=== PATIENT | female | born 1950 | race Caucasian/White ===

== ENCOUNTER → 2017-03-05 | Outpatient (CLI) | payer MEDICARE, BC ==
--- NOTE | 2017-03-05 15:29 | US ---
EXAMINATION TYPE: US thyroid st tissue head/neck DATE OF EXAM: 03/05/2017 COMPARISON: NONE CLINICAL HISTORY: 66-year-old female E04.2 MULTINODULAR GOITER. Family h/o thyroid issues and goiter, patients first thyroid US TECHNIQUE: Multiple sonographic images of the thyroid gland are obtained. FINDINGS: GLAND SIZE: Right Lobe: 3.9 x 1.2 x 1.3 cm Overall Parenchyma: homogenous Left Lobe: 4.3 x 1.3 x 1.5 cm Overall Parenchyma: homogeneous Isthmus Thickness: 0.2 cm NODULES RIGHT: # of nodules measured on right: 0 LEFT: # of nodules measured on left: 0 ISTHMUS: # of nodules measured in the isthmus: 0 Bilateral neck scanned, no evidence of lymphadenopathy. IMPRESSION: Thyroid gland measurements as above. No discrete nodule.
== END | disposition home or self-care (01) ==
LOC: RADUSWWP 14:22
PROVIDERS: ATTEND Internal Medicine Endocrinology, Diabetes & Metabolism
DX: E04.2 Nontoxic multinodular goiter (principal)
CPT/HCPCS: 36415; 76536; 84439; 84443; 84480; 86376

== ENCOUNTER → 2017-06-05 | Outpatient (CLI) | payer MEDICARE, BC ==
--- NOTE | 2017-06-07 08:58 | MM ---
Reason for exam: screening (asymptomatic). Last mammogram was performed 1 year and 4 months ago. History: Patient is postmenopausal and had first child at age 32. Excisional biopsy of the left breast, 1982. Took hormonal contraceptives for 16 years. Physical Findings: A clinical breast exam by your physician is recommended on an annual basis and results should be correlated with mammographic findings. MG 3D Screening Mammo W/Cad Bilateral CC and MLO view(s) were taken. Prior study comparison: January 27, 2016, bilateral MG 3d screening mammo w/cad. June 11, 2014, bilateral MG screening mammo w CAD. March 24, 2013, bilateral digital screening mammo w/CAD. Left chest wall pacemaker generator. Subareolar nodule on the left has minimally increased in size to 7mm from 6mm in 2016. As it was not seen prior to that, short interval follow up recommended. ASSESSMENT: Probably benign, BI-RAD 3 RECOMMENDATION: Follow-up diagnostic mammogram of the left breast in 6 months.
== END | disposition home or self-care (01) ==
LOC: RADMAMWWP 13:25
PROVIDERS: ATTEND Obstetrics & Gynecology
DX: Z12.31 Encounter for screening mammogram for malignant neoplasm of breast (principal)
CPT/HCPCS: 77063; G0202

== ENCOUNTER → 2017-09-18 | Outpatient (CLI) | payer MEDICARE, BC ==
[2017-09-18 14:24] LABS: T4, Free (Free Thyroxine) 1.36 ng/dL (0.78-2.19)
== END | disposition home or self-care (01) ==
LOC: LABWHC1 13:14
PROVIDERS: ATTEND Internal Medicine Endocrinology, Diabetes & Metabolism
DX: E04.2 Nontoxic multinodular goiter (principal)
CPT/HCPCS: 36415; 84439; 84443; 84481

== ENCOUNTER → 2017-11-14 | Outpatient (CLI) | payer MEDICARE, BC ==
--- NOTE | 2017-11-14 12:12 | MM ---
Reason for exam: additional evaluation requested from prior study. Last mammogram was performed 5 months ago. History: Patient is postmenopausal and had first child at age 32. Excisional biopsy of the left breast, 1982. Took hormonal contraceptives for 16 years. Physical Findings: Nurse did not find any significant physical abnormalities on exam. MG 3D Diag Mammo W/Cad LT CC and MLO view(s) were taken of the left breast. Prior study comparison: June 05, 2017, bilateral MG 3d screening mammo w/cad. January 27, 2016, bilateral MG 3d screening mammo w/cad. The breast tissue is heterogeneously dense. This may lower the sensitivity of mammography. There is a similar appearing circumscribed mass in the subareolar left breast at anterior depth slightly inner and upper in comparison to 2017 increased since 2015. These results were verbally communicated with the patient and result sheet given to the patient on 11/14/17. ASSESSMENT: Incomplete: need additional imaging evaluation, BI-RAD 0 RECOMMENDATION: Ultrasound of the left breast. (periareolar ultrasound, focus upper inner quadrant)
--- NOTE | 2017-11-14 12:13 | USB ---
Reason for exam: additional evaluation requested from abnormal screening. History: Patient is postmenopausal and had first child at age 32. Excisional biopsy of the left breast, 1982. Took hormonal contraceptives for 16 years. US Breast Limited LT Left breast ultrasound demonstrates a 0.7 x 0.6 x 0.7cm oval, cystic lesion at the retroareolar. These results were verbally communicated with the patient and result sheet given to the patient on 11/14/17. ASSESSMENT: Benign, BI-RAD 2 RECOMMENDATION: Return to routine screening mammogram schedule for both breasts.
== END | disposition home or self-care (01) ==
LOC: RADMAMWWP 10:47
PROVIDERS: ATTEND Obstetrics & Gynecology
DX: R92.8 Other abnormal and inconclusive findings on diagnostic imaging of breast (principal)
CPT/HCPCS: 77065; 76642; G0279

== ENCOUNTER → 2018-03-19 | Outpatient (CLI) | payer MEDICARE, BC ==
--- NOTE | 2018-03-19 14:51 | BD ---
EXAMINATION TYPE: Axial Bone Density DATE OF EXAM: 03/19/2018 COMPARISON: NONE CLINICAL HISTORY: Postmenopausal female. Osteoporosis screening. Height: 66 IN Weight: 193 LBS RISK FACTORS HISTORY OF: Active: YES Diet low in dairy products/other sources of calcium: YES Postmenopausal woman: AGE 54 MEDICATIONS: Additional Medications: VIT D3,HIGH BLOOD PRESSURE MEDS, CHOLESTEROL MEDS EXAM MEASUREMENTS: Bone mineral densitometry was performed using the [facility]. Bone mineral density as measured about the Lumbar spine is: ----- L1-L4(G/cm2): 1.460 T Score Values are as follows: ----- L2: 2.5 ----- L3: 2.0 ----- L4: 1.5 ----- L1-L4: 2.3 Bone mineral density has: Decreased -0.1% since study of: 09/02/2010 Bone mineral density about the R hip (g/cm2): 1.070 Bone mineral density about the L hip (g/cm2): 1.055 T Score values are as follows: -----R Neck: 0.2 -----L Neck: 0.1 -----R Total: 1.1 -----L Total: 0.8 Bone mineral density has: Decreased -3.6% since study of: 09/02/2010 IMPRESSION: Normal (Values between +1 and -1 indicate normal bone mass). Consider repeating this study in 5 year s or sooner if there is some new clinical indication. NOTE: T-SCORE=SD OF THE YOUNG ADULT MEAN.
== END | disposition home or self-care (01) ==
LOC: RADBDWWP 10:28
PROVIDERS: ATTEND Internal Medicine Geriatric Medicine
DX: M81.0 Age-related osteoporosis without current pathological fracture (principal)
CPT/HCPCS: 77080

== ENCOUNTER → 2018-09-17 | Outpatient (CLI) | payer MEDICARE, BC ==
[2018-09-17 20:12] LABS: T4, Free (Free Thyroxine) 1.3 ng/dL (0.80-1.80)
[2018-09-17 20:35] LABS: Thyroid Peroxidase Antibodies <28.0 U/mL (0.0-60.0)
== END | disposition home or self-care (01) ==
LOC: LABWHC1 09:58
PROVIDERS: ATTEND Internal Medicine Endocrinology, Diabetes & Metabolism
DX: E06.3 Autoimmune thyroiditis (principal)
CPT/HCPCS: 36415; 84439; 84443; 84480; 86376

== ENCOUNTER → 2018-09-20 | Outpatient (CLI) | payer MEDICARE, BC ==
--- NOTE | 2018-09-20 13:00 | CT ---
EXAMINATION TYPE: CT wrist LT wo con DATE OF EXAM: 09/20/2018 COMPARISON: None HISTORY: Left wrist fracture CT DLP: 100.1 mGycm Automated exposure control for dose reduction was used. TECHNIQUE: Axial images 2 mm thick sections. Reconstructed images in the coronal and sagittal planes. Three-D reconstructed images are reviewed. Images are obtained through fiberglass splint. FINDINGS: There is a comminuted fractures distal metaphyseal radius with extension to the articular surface. Th ere appears be some impaction the coronal reconstructed images. There is a small osseous fragment between the scaphoid and lunate. This may be an old fracture of the scaphoid. There appears to be a ulnar styloid nondisplaced fracture. Fracture line remains present. There is some hyperdense osseous densities just proximal to the petrous performed. Osseous fragments findings could be considered at this location. IMPRESSION: 1. IMPACTED COMMINUTED FRACTURE DISTAL METAPHYSEAL RADIUS WITH EXTENSION INTO THE INTRA-ARTICULAR MYKE FACE. 2. NONDISPLACED ULNAR STYLOID FRACTURE. 3. SUSPECTED AVULSION FROM THE PROXIMAL SCAPHOID, LIKELY A OLD FRACTURE. THIS MAY CONTRIBUTE TO SCAPH OLUNATE DISSOCIATION. 4. RADIOPAQUE FOREIGN BODIES OR SMALL OSSEOUS FRAGMENTS PROXIMAL TO THE FUSIFORM ABOVE THE EXPECTED L OCATION OF THE TRIANGULAR FIBROCARTILAGE.
== END | disposition home or self-care (01) ==
LOC: RADCTMAIN 12:13
PROVIDERS: ATTEND Orthopaedic Surgery
DX: S52.592A Other fractures of lower end of left radius, initial encounter for closed fracture (principal); S52.615A Nondisplaced fracture of left ulna styloid process, initial encounter for closed fracture

== ENCOUNTER → 2018-10-17 | Outpatient (CLI) | payer MEDICARE, BC ==
--- NOTE | 2018-10-18 11:05 | MM ---
Reason for exam: screening (asymptomatic). Last mammogram was performed 11 months ago. History: Patient is postmenopausal and had first child at age 32. Excisional biopsy of the left breast, 1982. Took hormonal contraceptives for 16 years. Physical Findings: A clinical breast exam by your physician is recommended on an annual basis and results should be correlated with mammographic findings. MG 3D Screening Mammo W/Cad Bilateral CC and MLO view(s) were taken. Prior study comparison: November 14, 2017, left breast MG 3d diag mammo w/cad LT. June 05, 2017, bilateral MG 3d screening mammo w/cad. The breast tissue is heterogeneously dense. This may lower the sensitivity of mammography. There is vague multifocal distortion in the upper outer quadrant of the right breast at middle posterior depth. Although this appears somewhat similar to priors, precautionary work up advised. ASSESSMENT: Incomplete: need additional imaging evaluation, BI-RAD 0 RECOMMENDATION: Ultrasound of the right breast. [facility] will attempt to contact patient to return for ultrasound.
== END | disposition home or self-care (01) ==
LOC: RADMAMWWP 09:39
PROVIDERS: ATTEND Obstetrics & Gynecology
DX: Z12.31 Encounter for screening mammogram for malignant neoplasm of breast (principal)
CPT/HCPCS: 77063; 77067

== ENCOUNTER → 2018-10-28 | Outpatient (CLI) | payer MEDICARE, BC ==
--- NOTE | 2018-10-28 11:03 | USB ---
Reason for exam: additional evaluation requested from abnormal screening. History: Patient is postmenopausal and had first child at age 32. Excisional biopsy of the left breast, 1982. Took hormonal contraceptives for 16 years. Physical Findings: Nurse did not find any significant physical abnormalities on exam. US Breast Workup Limited RT Right limited breast ultrasound including focal area of concern, retroareolar and axilla demonstrates no cystic or solid lesion seen. Focal asymmetry on the right upper outer quadrant corresponds to dense tissue. These results were verbally communicated with the patient and result sheet given to the patient on 10/28/18. ASSESSMENT: Benign, BI-RAD 2 RECOMMENDATION: Return to routine screening mammogram schedule for both breasts.
== END | disposition home or self-care (01) ==
LOC: RADUSWWP 08:53
PROVIDERS: ATTEND Obstetrics & Gynecology
DX: R92.8 Other abnormal and inconclusive findings on diagnostic imaging of breast (principal)

== ENCOUNTER 2020-02-20 08:25 | Day surgery (SDC) | payer MEDICARE ==
[2020-02-18 11:57] VITALS: BMI 31.1
[~2020-02-20 08:25] MED LIST: LACTATED RINGERS 1,000 ML IV SCH; LIDOCAINE 1% (10MG/ML) FOR IV START INTRADERMA PRN
[2020-02-20 08:54] VITALS: RESP 16; TEMP 98.4
[2020-02-20] MEDS ORDERED: LIDOCAINE 1% (10MG/ML) FOR IV START INTRADERMA ONE (09:06)
[2020-02-20] MEDS ORDERED: PROPOFOL 10 MG/ML 20 ML VIAL IV ONE (09:07)
--- NOTE | 2020-02-20 09:23 | P.PCN ---
Date of Procedure: 02/20/20 Procedure(s) Performed: BRIEF HISTORY: Patient is a 69-year-old pleasant white female scheduled for an elective colonoscopy as a part of evaluation of prior history of colon polyps. PROCEDURE PERFORMED: Colonoscopy. PREOPERATIVE DIAGNOSIS: History of colon polyps. IV sedation per Anesthesia. PROCEDURE: After informed consent was obtained, the patient, was brought into the endoscopy unit. IV sedation was administered by Anesthesia under continuous monitoring. Digital rectal examination was normal. Initially the Olympus CF-160 flexible video colonoscope was then inserted in the rectum, gradually advanced into the cecum without any difficulty. Careful examination was performed as the scope was gradually being withdrawn. Ileocecal valve and the appendiceal orifice were visualized and appeared normal. Prep was excellent. Mucosa of the cecum, ascending colon, transverse colon, descending colon, sigmoid colon, and rectum appeared normal. Retroflexion was performed in the rectum and no lesions were seen. The patient tolerated the procedure well. IMPRESSION: Normal-appearing colon from rectum to cecum with no evidence of colorectal neoplasia . RECOMMENDATIONS: Findings of this examination were discussed with the patient as well as her family. She was advised to have a repeat surveillance colonoscopy in 5 years because of the prior history of colon.
[2020-02-20 09:43] VITALS: BP 143/63; PULSE 55
== END 2020-02-20 10:05 | disposition home or self-care (01) ==
LOC: ORWHC2ENDO 08:25
PROVIDERS: ATTEND Internal Medicine Gastroenterology
DX: Z12.11 Encounter for screening for malignant neoplasm of colon (principal); K57.30 Diverticulosis of large intestine without perforation or abscess without bleeding; Z86.010 Personal history of colon polyps; I10 Essential (primary) hypertension; E78.5 Hyperlipidemia, unspecified; Z88.0 Allergy status to penicillin; Z95.0 Presence of cardiac pacemaker; Z79.899 Other long term (current) drug therapy
CPT/HCPCS: G0105; J2704; 45378

== ENCOUNTER → 2020-06-28 | Outpatient (CLI) | payer MEDICARE ==
--- NOTE | 2020-06-30 09:59 | MM ---
Reason for exam: screening (asymptomatic). Last mammogram was performed 1 year and 8 months ago. History: Patient is postmenopausal and had first child at age 32. Excisional biopsy of the left breast, 1982. Took hormonal contraceptives for 16 years. Physical Findings: A clinical breast exam by your physician is recommended on an annual basis and results should be correlated with mammographic findings. MG 3D Screening Mammo W/Cad Bilateral CC and MLO view(s) were taken. Prior study comparison: October 17, 2018, bilateral MG 3d screening mammo w/cad. November 14, 2017, left breast MG 3d diag mammo w/cad LT. The breast tissue is heterogeneously dense. This may lower the sensitivity of mammography. There is chronic nodularity in the left medial anterior left breast. Partially visualized pacemaker on the left. Stable medial subareolar nodularity right CC view. ASSESSMENT: Benign, BI-RAD 2 RECOMMENDATION: Routine screening mammogram of both breasts in 1 year.
== END | disposition home or self-care (01) ==
LOC: RADMAMWWP 16:37
PROVIDERS: ATTEND Obstetrics & Gynecology
DX: Z12.31 Encounter for screening mammogram for malignant neoplasm of breast (principal)
CPT/HCPCS: 77063; 77067

== ENCOUNTER → 2021-07-29 | Outpatient (CLI) | payer MEDICARE ==
--- NOTE | 2021-08-01 11:40 | MM ---
Reason for exam: screening (asymptomatic). Last mammogram was performed 1 year and 1 month ago. History: Patient is postmenopausal and had first child at age 32. Excisional biopsy of the left breast, 1982. Took hormonal contraceptives for 16 years. Physical Findings: A clinical breast exam by your physician is recommended on an annual basis and results should be correlated with mammographic findings. MG 3D Screening Mammo W/Cad Bilateral CC and MLO view(s) were taken. Prior study comparison: June 28, 2020, bilateral MG 3d screening mammo w/cad. October 17, 2018, bilateral MG 3d screening mammo w/cad. The breast tissue is heterogeneously dense. This may lower the sensitivity of mammography. Stable benign calcifications. There is no discrete abnormality. No significant changes when compared with prior studies. ASSESSMENT: Benign, BI-RAD 2 RECOMMENDATION: Routine screening mammogram of both breasts in 1 year.
== END | disposition home or self-care (01) ==
LOC: RADMAMWWP 09:25
PROVIDERS: ATTEND Obstetrics & Gynecology
DX: Z12.31 Encounter for screening mammogram for malignant neoplasm of breast (principal); Z78.0 Asymptomatic menopausal state
CPT/HCPCS: 77063; 77067

== ENCOUNTER → 2021-09-20 | Outpatient (CLI) | payer MEDICARE ==
--- NOTE | 2021-09-21 10:35 | P.ARTDOP ---
Arterial Doppler LOWER EXTREMITY ARTERIAL DOPPLER: DATE OF SERVICE: 09/20/2021 Reason for study: Cold feet and elevated blood sugars. Doppler waveforms: Multiphasic bilaterally throughout. Pulse volume recording: []. Pressure gradients: None. Ankle-brachial indices: Greater than 1. Toe brachial indices: 0.86 on the right, 0.69 on the left Impression: Normal study. .
== END | disposition home or self-care (01) ==
LOC: RADUSWWP 13:24
PROVIDERS: ATTEND Family Medicine
DX: R09.89 Other specified symptoms and signs involving the circulatory and respiratory systems (principal)
CPT/HCPCS: 93922

== ENCOUNTER → 2021-12-14 | Outpatient (CLI) | payer MEDICARE ==
--- NOTE | 2021-12-14 12:08 | BD ---
EXAMINATION TYPE: Axial Bone Density DATE OF EXAM: 12/14/2021 COMPARISON: 03/19/2018 CLINICAL HISTORY: 71 years year old Female. ICD-10 CODE: Z78.0 MENOPAUSAL STATE Height: 65.5 IN Weight: 192 LBS FRAX RISK QUESTIONS: History of Fracture in Adulthood: LT WRIST AGE RISK FACTORS HISTORY OF: History of Wrist Fracture: LT WRIST FX AGE 68 Active: YES Diet low in dairy products/other sources of calcium: YES Postmenopausal woman: AGE 53 MEDICATIONS: Additional Medications: VIT D, BLOOD PRESSURE, STATIN, CHOLESTEROL MEDS, POTASSIUM, GLUCOPHAGE, EXAM MEASUREMENTS: Bone mineral densitometry was performed using the [employer]. Bone mineral density as measured about the Lumbar spine is: ----- L1-L4(G/cm2): 1.496 T Score Values are as follows: ----- L1: 4.1 ----- L2: 2.9 ----- L3: 1.8 ----- L4: 1.9 ----- L1-L4: 2.6 Bone mineral density has: Increased 2.2% since study of: 03/19/2018 Bone mineral density about the R hip (g/cm2): 1.063 Bone mineral density about the L hip (g/cm2): 1.020 T Score values are as follows: -----R Neck: 0.2 -----L Neck: -0.1 -----R Total: 1.0 -----L Total: 0.8 Bone mineral density has: Decreased -0.6% since study of: 03/19/2018 FRAX%s: The graph provided illustrates a 11.2 chance for a major osteoporotic fx and a 0.6 chance for the hips probability for fx in 10 years time. IMPRESSION: Normal NOTE: T-SCORE=SD OF THE YOUNG ADULT MEAN.
== END | disposition home or self-care (01) ==
LOC: RADBDWWP 10:25
PROVIDERS: ATTEND Family Medicine
DX: Z78.0 Asymptomatic menopausal state (principal)
CPT/HCPCS: 77080

== ENCOUNTER → 2022-07-31 | Outpatient (CLI) | payer MEDICARE ==
--- NOTE | 2022-08-01 10:20 | MM ---
Reason for Exam: Screening (asymptomatic). Last screening mammogram was performed 12 month(s) ago. Patient History: Menarche at age 17. First Full-Term at age 32. Late child-bearing (after 30). Postmenopausal. Patient used Hormonal Contraceptives for 16 years. 1983, Excisional Biopsy on the Left side. Risk Values: Sarah 5 year model risk: 2.6%. NCI Lifetime model risk: 7.4%. Prior Study Comparison: 10/17/2018 Bilateral Screening Mammogram, [facility]. 06/28/2020 Bilateral Screening Mammogram, [facility]. 07/29/2021 Bilateral Screening Mammogram, [facility]. Tissue Density: The breast tissue is heterogeneously dense. This may lower the sensitivity of mammography. Findings: Analyzed By CAD. There is no suspicious group of microcalcifications or new suspicious mass in either breast. Stable benign calcifications. No significant change from prior exams. Overall Assessment: Benign, BI-RAD 2 Management: Screening Mammogram of both breasts in 1 year. A clinical breast exam by your physician is recommended on an annual basis and results should be correlated with mammographic findings. Electronically signed and approved by: Narayan Fuentes D.O.
== END | disposition home or self-care (01) ==
LOC: RADMAMWWP 08:49
PROVIDERS: ATTEND Obstetrics & Gynecology
DX: Z12.31 Encounter for screening mammogram for malignant neoplasm of breast (principal); Z78.0 Asymptomatic menopausal state; Z98.890 Other specified postprocedural states
CPT/HCPCS: 77063; 77067

== ENCOUNTER → 2023-08-02 | Outpatient (CLI) | payer MEDICARE ==
--- NOTE | 2023-08-05 18:22 | MM ---
Reason for Exam: Screening (asymptomatic). Last screening mammogram was performed 12 month(s) ago. Patient History: Menarche at age 17. First Full-Term at age 32. Late child-bearing (after 30). Postmenopausal. Patient has history of breast feeding. Patient used Hormonal Contraceptives for 16 years. 1983, Excisional Biopsy on the Left side. Risk Values: Sarah 5 year model risk: 2.6%. NCI Lifetime model risk: 7.1%. Prior Study Comparison: 01/27/2016 Bilateral Screening Mammogram, [facility]. 06/05/2017 Bilateral Screening Mammogram, [facility]. 11/14/2017 Left Diagnostic Mammogram, [facility]. 10/17/2018 Bilateral Screening Mammogram, [facility]. 06/28/2020 Bilateral Screening Mammogram, [facility]. 07/29/2021 Bilateral Screening Mammogram, [facility]. 07/31/2022 Bilateral MG 3D screening mammo w/cad, [facility]. Tissue Density: There are scattered fibroglandular densities. Findings: Analyzed By CAD. Generator device projects over the left pectoralis muscle. Unchanged areas of bilateral asymmetric densities. There is no suspicious group of microcalcifications or new suspicious mass in either breast. Overall Assessment: Benign, BI-RAD 2 Management: Screening Mammogram of both breasts in 1 year. . Patient should continue monthly self-breast exams. A clinical breast exam by your physician is recommended on an annual basis. This exam should not preclude additional follow-up of suspicious palpable abnormalities. Note on Sarah scores and lifetime risk: 1. A Sarah score greater than 3% is considered moderate risk. If this is the case, consider specialist referral to assess eligibility for a risk reducing agent. 2. If overall lifetime risk for the development of breast cancer is 20% or higher, the patient may qualify for future screening with alternating mammogram and breast MRI. Electronically signed and approved by: Brittany Bueno M.D. Radiologist
== END | disposition home or self-care (01) ==
LOC: RADMAMWWP 08:46
PROVIDERS: ATTEND Obstetrics & Gynecology
DX: Z12.31 Encounter for screening mammogram for malignant neoplasm of breast (principal); Z78.0 Asymptomatic menopausal state; Z92.0 Personal history of contraception
CPT/HCPCS: 77063; 77067